=== PATIENT | male | born 1985 | race Native Hawaiian/Other Pacific Islander ===

== ENCOUNTER 2018-02-08 14:50 | Emergency (ER) | payer MEDICAID ==
[2018-02-08 14:51] VITALS: BMI 19.5
[2018-02-08 14:57] VITALS: BP 138/84; PULSE 84; RESP 18; TEMP 97.5; O2SAT 97
--- NOTE | 2018-02-08 15:58 | C.PDOC ---
History Of Present Illness 32 yo male come in for evaluation of Right thumb contusion sustained 2 days ago " caught in car door". Pt noted bruising, swelling under the Right thumb nail, pain. Otherwise, denies deformity, open wounds, denies weakness, sensory or vascular deficits. Ambulate to Ed for evaluation, not in any apparent distress. Time Seen by Provider: 02/08/18 14:57 Chief Complaint (Nursing): Finger,Hand,&Wrist History Per: Patient Past Medical History Reviewed: Historical Data, Nursing Documentation, Vital Signs Vital Signs: Last Vital Signs Temp 97.5 F L 02/08/18 14:53 Pulse 84 02/08/18 14:53 Resp 18 02/08/18 14:53 BP 138/84 02/08/18 14:53 Pulse Ox 97 02/08/18 14:53 - Medical History PMH: No Chronic Diseases Denies: Chronic Kidney Disease Surgical History: Cholecystectomy (September 26, 2015) Denies: Pacemaker - [facility] Procedures DILATION OF COMMON BILE DUCT WITH INTRALUMINAL DEVICE, ENDO (05/11/16) DILATION OF LEFT HEPATIC DUCT, ENDO (05/11/16) DILATION OF PANCREATIC DUCT WITH INTRALUMINAL DEVICE, ENDO (05/11/16) DILATION OF RIGHT HEPATIC DUCT, ENDO (05/11/16) EXCISION OF COMMON BILE DUCT, ENDO, DIAGN (05/11/16) EXCISION OF LIVER, PERCUTANEOUS APPROACH, DIAGNOSTIC (10/10/15) EXCISION OF STOMACH, ENDO, DIAGN (05/11/16) RESECTION OF GALLBLADDER, PERCUTANEOUS ENDOSCOPIC APPROACH (09/26/15) ULTRASONOGRAPHY OF GASTROINTESTINAL TRACT (05/11/16) Family History: States: Unknown Family Hx - Social History Hx Tobacco Use: No Hx Alcohol Use: Yes (social) Hx Substance Use: No - Immunization History Hx Tetanus Toxoid Vaccination: No Hx Influenza Vaccination: No Hx Pneumococcal Vaccination: No Review Of Systems Except As Marked, All Systems Reviewed And Found Negative. Skin: Positive for: Other (Right thumb nail injury) Neurological: Negative for: Weakness, Numbness Physical Exam - Physical Exam Appears: Well, Non-toxic, No Acute Distress Skin: Normal Color, Warm Head: Normacephalic Eye(s): bilateral: PERRL Extremity: Normal ROM (Right thumb, no neurovascular deficits), Tenderness (Righ t 1st distal phalanx with 100% subungual hematoma, Scant ecchymoses under nail. No evidence of nail avulsion, no palpable defomrity.), Capillary Refill (less than 2sec to Right hand), No Deformity ED Course And Treatment O2 Sat by Pulse Oximetry: 97 - Other Rad Right thumb X-Ray: Interpreted by Me, Viewed By Me Interpretation: (-) acute fx or dislocation Progress Note: On re-eval, pt is afebrile, hemodynamicaly stable. Non-toxic. Right hand:subungual hematoma 100 % to Right thumb with scant ecchymoses under nail. No palpable deformity, FAROM, no neurovascular defcits. Imaging review (- ) acute fx or dislocation. Subungual hematoma drained with needle #18 gauge with mod bloody draining. Sterile dressing applied. FInger splint, aluminium applied to Right finger. Pt advised. ref. to f/u with hand specialist in 2 3- days for re-eavl. return if any new changes. Disposition Counseled Patient/Family Regarding: Studies Performed, Diagnosis, Need For Followup - Disposition Referrals: Gilma Hardin MD [Staff Provider] - Disposition: HOME/ ROUTINE Disposition Time: 15:45 Condition: STABLE Additional Instructions: Light duty Finger splint as need Follow up with Hand specialist in 2-3 days for re-evaluation. return if any new changes. Instructions: Finger Sprain (DC), Contusion (DC) - Clinical Impression Clinical Impression: Subungual hematoma of digit of hand
--- NOTE | 2018-02-08 16:14 | RAD ---
Date of service: 02/08/2018 PROCEDURE: Right Thumb radiographs. HISTORY: injury COMPARISON: None. TECHNIQUE: AP radiograph of the right hand, as well as spot oblique and lateral images of thumb were obtained. FINDINGS: RIGHT THUMB: Normal right thumb, without fracture or focal lesion. Remainder of the right hand (as seen on the AP view) grossly unremarkable. JOINTS: Normal. SOFT TISSUES: Normal. OTHER FINDINGS: None. IMPRESSION: Normal right thumb radiographs.
== END 2018-02-08 16:13 | disposition home or self-care (01) ==
LOC: C.ER 14:50
DX: S60.111A Contusion of right thumb with damage to nail, initial encounter (principal); W23.0XXA Caught, crushed, jammed, or pinched between moving objects, initial encounter